=== PATIENT | female | born 1980 | race Caucasian/White ===

== ENCOUNTER 2021-11-19 10:49 | Emergency (ER) | payer OTHER ==
[~2021-11-19] VITALS: Ht 170.2 cm; Wt 73.5 kg
[2021-11-19] MEDS ORDERED: PROVERA2.5 MG PO (15:28)
== END 2021-11-19 15:35 ==
LOC: ER 10:49
DX: N93.8 Other specified abnormal uterine and vaginal bleeding (principal)

== ENCOUNTER 2021-12-29 06:05 | Day surgery (SDC) | payer OTHER ==
[~2021-12-29 06:05] MED LIST: PROVERA2.5 MG PO
== END 2021-12-29 20:11 | disposition home or self-care (01) ==
LOC: CIR.AMB 06:05
PROVIDERS: ATTEND Obstetrics & Gynecology
DX: N93.9 Abnormal uterine and vaginal bleeding, unspecified (principal)